=== PATIENT | female | born 1960 | race Caucasian/White ===

== ENCOUNTER 2023-12-30 18:37 | Emergency (ER) | payer SELFPAY ==
[~2023-12-30] VITALS: Ht 160 cm; Wt 75.0 kg
[~2023-12-30 18:37] MED LIST: INSULIN; METFORMIN
[2023-12-30 18:41] VITALS: TEMP 98.5; O2SAT 100
[2023-12-30] MEDS: SODIUM CHLORIDE 0.9% 1000ML BAG (SEPSIS BOLUS) IV ONE (19:30)
[2023-12-30 20:16] LABS: BASOPHILS % 0.5 % (0.0-2.0); DIFFERENTIAL COMMENT 0; EOSINOPHILS % 1.2 % (0.0-5.0); HEMATOCRIT. 34.6 % (36.0-48.0); HEMOGLOBIN. 11.2 g/dL (12.0-16.0); LYMPHOCYTES % 19.6 % (20.0-50.0); MEAN CORPUSCULAR HEMOGLOBIN 25.8 pg (28.0-32.0); MEAN CORPUSCULAR HGB CONC 32.3 g/dL (31.0-37.0); MEAN CORPUSCULAR VOLUME 79.9 fL (81.0-99.0); MEAN PLATELET VOLUME 9.5 fl (7.4-10.4); MONOCYTES % 8.7 % (2.0-8.0); PLATELET 293 x1000/uL (130-400); RED BLOOD CELL COUNT 4.34 mill/uL (4.2-5.4); RED CELL DISTRIBUTION WIDTH 16.9 % (11.6-14.6); WHITE BLOOD COUNT 9.4 x1000/uL (4.5-11.0)
[2023-12-30 20:21] LABS: POTASSIUM 4.1 mEq/L (3.5-5.1)
[2023-12-30 20:25] LABS: INR 0.9; PROTHROMBIN TIME 10.5 sec (9.6-11.0)
[2023-12-30] MEDS: INSULIN REGULAR (HUMULIN R) 1000UNITS/10ML VIAL IV ONE (21:45)
[2023-12-30] MEDS: DIPHENOXYLATE/ATROPINE 2.5/0.025MG TABLET PO ONE (21:45)
[2023-12-30] MEDS ORDERED: IBUP-1523 MT (22:08)
[2023-12-30] MEDS ORDERED: AZIT250T12 MT (22:08)
[2023-12-30] MEDS ORDERED: ONDA4TAB50 MT (22:08)
[2023-12-30] MEDS ORDERED: DIPH1TAB24 MT (22:08)
[2023-12-30] MEDS ORDERED: TOPUD MT (22:08)
[2023-12-30] MEDS ORDERED: KETOROLAC 60MG/2ML VIAL IM ONE (22:15)
[2023-12-30 22:57] VITALS: BP 145/88; PULSE 77; RESP 18
[2023-12-30] MEDS: KETOROLAC 30MG/ML VIAL IM NR (22:57)
== END 2023-12-31 00:15 | disposition home or self-care (01) ==
LOC: ER 18:37
DX: K52.89 Other specified noninfective gastroenteritis and colitis (principal); E11.9 Type 2 diabetes mellitus without complications; I10 Essential (primary) hypertension; Z88.6 Allergy status to analgesic agent
CPT/HCPCS: 99285; 96374; 71045; 96361; 80048; 82962; 83605; 85025; 85610; 87040; 36415; 84145; 93005; 96372; J1885; J7030; J1815